=== PATIENT | female | born 1935 | race Caucasian/White ===

== ENCOUNTER 2018-03-17 23:19 | Emergency (ER) | payer OTHER ==
[~2018-03-17] VITALS: Ht 149.9 cm; Wt 56.2 kg
[~2018-03-17 23:19] MED LIST: ACID CONTROL150 MG; CALTRATE 61 TAB.CHEW; FORTAMET500 MG/BOT; HYZAAR 50-12.1 UDTAB
[2018-03-17] MEDS ORDERED: JANUVIA50 MG (23:38)
[2018-03-18] MEDS ORDERED: PEPCID40 MG PO (03:51)
[2018-03-18] MEDS ORDERED: LEVSIN/SL0.125 MG SL (03:51)
== END 2018-03-18 03:53 | disposition home or self-care (01) ==
LOC: ER 23:19
DX: R10.13 Epigastric pain (principal)

== ENCOUNTER 2022-06-25 10:05 | Emergency (ER) | payer OTHER ==
[~2022-06-25] VITALS: Ht 157.5 cm; Wt 53.5 kg
[~2022-06-25 10:05] MED LIST changes: +JANUVIA50 MG; +LEVSIN/SL0.125 MG SL; +PEPCID40 MG PO
== END 2022-06-25 15:52 ==
LOC: ER 10:05
DX: K29.70 Gastritis, unspecified, without bleeding (principal); T50.B95A Adverse effect of other viral vaccines, initial encounter; Y92.9 Unspecified place or not applicable; E11.9 Type 2 diabetes mellitus without complications; I10 Essential (primary) hypertension; Z20.822 Contact with and (suspected) exposure to COVID-19